=== PATIENT | male | born 1985 | race Two or more races ===

== ENCOUNTER 2020-02-19 14:11 | Outpatient (CLI) | payer OTHER | END 2020-02-19 14:12 | disposition home or self-care (01) | LOC: MRI 14:11 | PROVIDERS: ATTEND Obstetrics & Gynecology | DX: M54.89 Other dorsalgia (principal); M62.830 Muscle spasm of back; M54.16 Radiculopathy, lumbar region; N50.819 Testicular pain, unspecified | CPT/HCPCS: 72148 ==

== ENCOUNTER 2021-05-28 12:45 | Outpatient (CLI) | payer OTHER | END 2021-05-28 12:46 | disposition home or self-care (01) | LOC: LAB 12:45 | PROVIDERS: ATTEND Obstetrics & Gynecology | DX: Z20.818 Contact with and (suspected) exposure to other bacterial communicable diseases (principal); Z20.828 Contact with and (suspected) exposure to other viral communicable diseases ==